=== PATIENT | female | born 1970 | race Asian ===

== ENCOUNTER → 2018-07-28 14:14 | Outpatient (CLI) | payer OTHER, SELFPAY ==
[2018-07-31 18:23] LABS: QuantiFERON TB NEGATIVE (Negative)
== END ==
PROVIDERS: Family Medicine; Visit Provider Nurse Practitioner Family
DX: Z86.11 Personal history of tuberculosis (principal)
CPT/HCPCS: 36415; 86480

== ENCOUNTER → 2019-08-02 15:07 | Outpatient (CLI) | payer OTHER, SELFPAY ==
[2019-08-05 12:52] LABS: Mitogen-NIL > 10.00 IU/mL; NIL 0.08 IU/mL; QuantiFERON TB NEGATIVE (Negative); TB1-NIL < 0.01 IU/mL; TB2-NIL < 0.01 IU/mL
== END ==
PROVIDERS: Visit Provider Internal Medicine
DX: R76.11 Nonspecific reaction to tuberculin skin test without active tuberculosis (principal)
CPT/HCPCS: 36415; 86480

== ENCOUNTER 2020-04-23 07:12 | Emergency (ER) | payer OTHER, SELFPAY ==
[2020-04-23 07:20] VITALS: BP 137/83; PULSE 88; RESP 18; O2SAT 99
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
[2020-04-23] MEDS: IBUPROFEN 400 MG TABLET 800 MG PO (07:44)
== END 2020-04-23 07:50 | disposition home or self-care (01) ==
PROVIDERS: Emergency Provider Emergency Medicine
DX: R10.13 Epigastric pain (principal); R10.9 Unspecified abdominal pain; Y04.2XXA Assault by strike against or bumped into by another person, initial encounter; Y99.0 Civilian activity done for income or pay
CPT/HCPCS: 99282; 99283

== ENCOUNTER → 2020-07-11 13:25 | Outpatient (CLI) | payer OTHER, SELFPAY ==
[2020-07-13 15:08] LABS: QuantiFERON Mitogen Value >10.00 IU/mL (.); QuantiFERON Nil Value 0.16 IU/mL (.); QuantiFERON TB Gold Plus Negative (Negative); QuantiFERON TB1 Ag Value 0.21 IU/mL (.); QuantiFERON TB2 Ag Value 0.17 IU/mL (.)
== END ==
PROVIDERS: Referring Provider Nurse Practitioner; Visit Provider Nurse Practitioner
DX: Z11.1 Encounter for screening for respiratory tuberculosis (principal)
CPT/HCPCS: 36415; 86480

== ENCOUNTER → 2022-10-11 14:40 | Outpatient (CLI) | payer OTHER, SELFPAY ==
[2022-10-17 14:58] LABS: QuantiFERON Mitogen Value >10.00 IU/mL (.); QuantiFERON Nil Value 0.17 IU/mL (.); QuantiFERON TB Gold Plus Negative (Negative); QuantiFERON TB1 Ag Value 0.18 IU/mL (.); QuantiFERON TB2 Ag Value 0.15 IU/mL (.)
== END ==
PROVIDERS: Referring Provider Registered Nurse; Visit Provider Registered Nurse
DX: Z11.1 Encounter for screening for respiratory tuberculosis (principal)
CPT/HCPCS: 36415; 86480

== ENCOUNTER → 2024-06-10 14:35 | Outpatient (CLI) | payer OTHER, SELFPAY ==
[2024-06-13 23:36] LABS: QuantiFERON Mitogen Value >10.00 IU/mL (.); QuantiFERON Nil Value 0.02 IU/mL (.); QuantiFERON TB Gold Plus Negative (Negative); QuantiFERON TB1 Ag Value 0.04 IU/mL (.); QuantiFERON TB2 Ag Value 0.04 IU/mL (.)
== END ==
PROVIDERS: Referring Provider Registered Nurse; Visit Provider Registered Nurse
DX: Z11.1 Encounter for screening for respiratory tuberculosis (principal)
CPT/HCPCS: 36415; 86480